=== PATIENT | female | born 1985 | race Caucasian/White ===

== ENCOUNTER 2023-02-05 12:58 | Outpatient (RCR) | payer OTHER, SELFPAY | END 2023-04-19 09:00 | disposition home or self-care (01) | LOC: PT 12:58 | PROVIDERS: PCP Family Medicine | DX: S46.011S Strain of muscle(s) and tendon(s) of the rotator cuff of right shoulder, sequela (principal) | CPT/HCPCS: 97010; 97014; 97035; 97110; 97140; 97161 ==

== ENCOUNTER 2023-02-24 19:23 | Emergency (ER) | payer BC, OTHER, SELFPAY ==
[2023-02-24 19:46] VITALS: BP 117/68; PULSE 88; RESP 18; TEMP 36.9; O2SAT 98; BMI 25.9
--- NOTE | 2023-02-24 19:58 | ED.GENADUL1 ---
HPI - General Adult General Chief complaint: Headache Stated complaint: HEADACHE Time Seen by Provider: 02/24/23 19:40 Mode of arrival: walk-in Limitations: no limitations History of Present Illness HPI narrative: patient is a 38-year-old female who presents to the emergency department for the evaluation of worsening headache throughout the day. She has a history of similar migraines in the past. She denies any new focal medical complaints associated with this headache. She has had no fevers, chills, visual changes, peripheral paresthesias or upper respiratory symptoms. She is not able to take maintenance medications for headaches because she is on methotrexate. She is not concerned for . No falls or injuries. She states the pain is behind the bilateral eyes and radiates around to the neck. This is typical of previous headaches. She states her headaches have been increasing in frequency, although it is uncommon for her to have headaches so severe that they require a hospital visit. No medications were taken prior to arrival. Related Data Previous Rx's Medication Instructions Recorded qckbvfysrk-ncqiqteherubt-faxajxfj 1 cap PO Q6H PRN headache #10 caps 02/24/23 50 mg-300 mg-40 mg capsule (Fioricet) ondansetron 4 mg disintegrating 4 mg PO Q6H PRN nausea and 02/24/23 tablet vomiting #12 tabs Allergies Allergy/AdvReac Type Severity Reaction Status Date / Time No Known Drug Allergies Allergy Verified 02/24/23 19:45 Review of Systems ROS Constitutional Denies: fever or chills Ears, nose, mouth, and throat Denies: throat pain Cardiovascular Denies: chest pain Respiratory Denies: shortness of breath or cough Gastrointestinal Reports: nausea Musculoskeletal Reports: neck pain; Denies: back pain Integumentary/Breast Denies: rash Neurological Reports: headache; Denies: numbness in extremities or weakness in extremities Endocrine Denies: excessive urination [facility] Social History Smoking status: Never smoker Exam Narrative Exam Narrative: Gen.: Awake, alert, in no distress Head: Normocephalic, atraumatic ENT: Moist mucous membranes, no nuchal rigidity or meningismus Respiratory: No respiratory distress Extremities: Moves extremities equally Psych: Normal mood and affect Neuro: No focal neuro deficit Skin: Warm, dry, intact Constitutional Vital Signs, click to edit/add: Last Vital Signs Temp 98.4 F 02/24/23 19:46 Pulse 88 02/24/23 19:46 Resp 18 02/24/23 19:46 BP 117/68 02/24/23 19:46 Pulse Ox 98 02/24/23 19:46 O2 Del Method Room Air 02/24/23 19:46 Course Vital Signs Vital signs: Vital Signs Temperature 98.4 F 02/24/23 19:46 Pulse Rate 88 02/24/23 19:46 Respiratory Rate 18 02/24/23 19:46 Blood Pressure 117/68 02/24/23 19:46 Pulse Oximetry 98 02/24/23 19:46 Oxygen Delivery Method Room Air 02/24/23 19:46 Temperature 98.4 F 02/24/23 19:46 Pulse Rate 88 02/24/23 19:46 Respiratory Rate 18 02/24/23 19:46 Blood Pressure 117/68 02/24/23 19:46 Pulse Oximetry 98 02/24/23 19:46 Oxygen Delivery Method Room Air 02/24/23 19:46 Medical Decision Making MDM Narrative Medical decision making narrative: patient treated with IV fluids, Toradol, Reglan, magnesium and Decadron. She drove herself to the emergency department to we were not able to give any medications that would sedate her. She reported feeling improvement after the magnesium was finished. She has a typical migraine consistent with previous headaches, no new focal medical complaints or neuro deficits. Patient will be discharged home with Fioricet and Zofran. Follow-up with PCP and return to the Emergency Room if symptoms change or worsen. Medical Records Medical records reviewed: Yes I reviewed the patient's medical records Discharge Plan Discharge Chief Complaint: Headache Clinical Impression: Headache Patient Disposition: Home, Self-Care Time of Disposition Decision: 21:11 Condition: Good Prescriptions / Home Meds: [place]lpqgh-zorazebuznheg-mryi [Fioricet] 50-300-40 mg capsule 1 cap PO Q6H PRN (Reason: headache) Qty: 10 0RF ondansetron 4 mg tablet,disintegrating 4 mg PO Q6H PRN (Reason: nausea and vomiting) Qty: 12 0RF Instructions: Acute Headache (ED) Stand Alone Forms: Portal Instructions Referrals: HEATHER SOSA [Primary Care Provider] - 1 week
[2023-02-24] MEDS: KETOROLAC TROMETHAMINE 30 MG/ML VIAL IVP (20:26)
[2023-02-24] MEDS: MAGNESIUM SULFATE IN WATER 2 GM/50 ML PREMIX IV (20:27)
[2023-02-24] MEDS: DEXAMETHASONE SOD PHOS 10 MG/ML VIAL IV (20:27)
[2023-02-24] MEDS: 0.9 % SODIUM CHLORIDE 1,000 ML 1000 ML IV (20:27)
[2023-02-24] MEDS: METOCLOPRAMIDE HCL 10 MG/2 ML VIAL INJ (20:27)
== END 2023-02-24 21:33 | disposition home or self-care (01) ==
PROVIDERS: Emergency Provider Emergency Medicine; PCP Family Medicine
DX: R51.9 Headache, unspecified (principal); Z79.899 Other long term (current) drug therapy
CPT/HCPCS: 96372; 96374; 96375; 99284; J1100

== ENCOUNTER 2023-04-20 08:41 | Outpatient (RCR) | payer OTHER, SELFPAY | END 2023-05-08 12:31 | disposition home or self-care (01) | LOC: PT 08:41 | PROVIDERS: PCP Family Medicine; Visit Provider Orthopaedic Surgery | DX: S46.011S Strain of muscle(s) and tendon(s) of the rotator cuff of right shoulder, sequela (principal) | CPT/HCPCS: 97110 ==

== ENCOUNTER 2024-05-13 15:21 | Outpatient (OUT) | payer BC, OTHER, SELFPAY ==
--- NOTE | 2024-05-13 | XR_ITS ---
[address] [address] Patient Name: JAYME MCNEILL MRN: [id number] date: 1985 Sex: F Assigned Patient Location: [facility] Current Patient Location: Accession/Order Number: [id number] Exam Date: 05/13/2024 15:25 Report Date: 05/14/2024 11:56 At the request of: RAHUL FRASER Procedure: XR chest 2V EXAM: XR chest 2V HISTORY: Exercise induced asthma J45.990 COMPARISON: None. TECHNIQUE: Frontal and lateral views of the chest. FINDINGS: No focal consolidations or pleural effusions. Cardiomediastinal silhouette is unremarkable. Rotator cuff anchor in the right humeral head. XR/XR chest 2V IMPRESSION: No acute disease. Electronically authenticated by: ALLA SMILEY Date: 05/14/2024 11:56
== END 2024-05-13 15:22 | disposition home or self-care (01) ==
LOC: RAD 15:22
PROVIDERS: PCP Family Medicine; Visit Provider Physician Assistant
DX: J45.990 Exercise induced bronchospasm (principal); D86.9 Sarcoidosis, unspecified
CPT/HCPCS: 71046